=== PATIENT | female | born 1985 | race Native Hawaiian/Other Pacific Islander ===

== ENCOUNTER 2017-04-16 07:57 | Day surgery (SDC) | payer OTHER ==
--- NOTE | 2017-04-16 08:26 | C.PDOC ---
History Of Present Illness 31-year-old female presents to the emergency department complaining of vaginal bleeding for 2 days. LMP was 02/03/17. Patient had an ultrasound yesterday done by Dr. Corral, and was told to come in today due to ongoing vaginal bleeding. No nausea, vomiting, diarrhea, fever, or chills. Time Seen by Provider: 04/16/17 08:03 Chief Complaint (Nursing): Female Genitourinary History Per: Patient History/Exam Limitations: no limitations Onset/Duration Of Symptoms: Days (x2) Current Symptoms Are (Timing): Still Present Abnormal Vaginal Bleeding: Yes : 2 Para: 1 Past Medical History Reviewed: Historical Data, Nursing Documentation, Vital Signs Vital Signs: Last Vital Signs Temp 97.1 F L 04/16/17 07:59 Pulse 94 H 04/16/17 07:59 Resp 18 04/16/17 07:59 BP 113/76 04/16/17 07:59 Pulse Ox 100 04/16/17 08:26 Surgical History: Family History: States: No Known Family Hx - Social History Hx Alcohol Use: No Hx Substance Use: No - Immunization History Hx Tetanus Toxoid Vaccination: No Hx Influenza Vaccination: No Hx Pneumococcal Vaccination: No Review Of Systems Except As Marked, All Systems Reviewed And Found Negative. Constitutional: Negative for: Fever, Chills Gastrointestinal: Negative for: Nausea, Vomiting, Diarrhea Genitourinary: Positive for: Vaginal Bleeding Physical Exam - Physical Exam Appears: Non-toxic, No Acute Distress Skin: Normal Color, Warm, Dry Head: Atraumatic, Normacephalic Eye(s): bilateral: Normal Inspection, PERRL, EOMI Nose: Normal Oral Mucosa: Moist Neck: Normal ROM, Supple Chest: Symmetrical Cardiovascular: Rhythm Regular, No Murmur Respiratory: Normal Breath Sounds, No Accessory Muscle Use Gastrointestinal/Abdominal: Soft, Tenderness (to suprapubic region), No Guarding , No Rebound Back: Normal Inspection, No CVA Tenderness, No Vertebral Tenderness Extremity: Bilateral: Atraumatic, Normal Color And Temperature, Normal ROM Neurological/Psych: Oriented x3, Normal Speech ED Course And Treatment O2 Sat by Pulse Oximetry: 100 (RA) Pulse Ox Interpretation: Normal Medical Decision Making Medical Decision Making: Impression: Incomplete Time: 8:05 Initial Plan: CMP CBC Blood type and screen PTT Prothrombin time Urinalysis 8:24 Patient will be admitted to Dr. Corral for incomplete miscarriage Disposition Discussed With .: Jose Luis Corral Doctor Will See Patient In The: ED Counseled Patient/Family Regarding: Studies Performed, Diagnosis - Disposition Disposition: HOSPITALIZED Disposition Time: 08:25 Condition: FAIR Forms: [facility] (Bangladeshi) - Clinical Impression Clinical Impression: Incomplete miscarriage - Scribe Statement The provider has reviewed the documentation as recorded by the Sheldon Garcia Provider Attestation: All medical record entries made by the Sheldon were at my direction and personally dictated by me. I have reviewed the chart and agree that the record accurately reflects my personal performance of the history, physical exam, medical decision making, and the department course for this patient. I have also personally directed, reviewed, and agree with the discharge instructions and disposition.
[2017-04-16 08:31] LABS: SQUAMOUS EPITHIAL 3 /hpf (0-5); URINE BILIRUBIN NEGATIVE (NEGATIVE); URINE BLOOD 3+ (NEGATIVE); URINE CLARITY Hazy (Clear); URINE COLOR Yellow (YELLOW); URINE GLUCOSE (UA) NORMAL (Normal); URINE PROTEIN 1+ mg/dL (NEGATIVE); URINE UROBILINOGEN NORMAL mg/dL (0.2-1.0)
[2017-04-16 08:32] LABS: URINE LEUKOCYTE ESTERASE 1+ Leu/uL (Negative)
[2017-04-16 08:35] LABS: INR 1.2; PROTHROMBIN TIME 13.5 SECONDS (9.7-12.2)
--- NOTE | 2017-04-16 08:38 | CP.PCM.HP ---
History of Present Illness - History of Present Illness History of Present Illness: 31 yr lmp 01/24/18 came with co vaginal bleeding started 2 days , got heaveir last night wit clots and pain/cramping. obhx 1x pmh denies med pnv all nkda psh den soch den sse mod amunt of blod with clots,cervix dilated. pelvic exam ext gen old blood, cervix dilated with clots, ut antverted,no mass abd soft,mild tenderness Present on Admission - Present on Admission Any Indicators Present on Admission: No History of DVT/PE: No History of Uncontrolled Diabetes: No Urinary Catheter: No Decubitus Ulcer Present: No Review of Systems - Reproductive: Female Reproductive:Female: Heavy Menses Past Patient History - Past Social History Smoking Status: Never Smoked - PSYCHIATRIC Hx Substance Use: No - SURGICAL HISTORY Hx Section: Yes (x1) - ANESTHESIA Hx Anesthesia: Yes Hx Anesthesia Reactions: No Meds Allergies/Adverse Reactions: Allergies Allergy/AdvReac Type Severity Reaction Status Date / Time No Known Allergies Allergy Verified 04/16/17 08:01 Physical Exam - Exam External exam: NORMAL EXTERNAL EXAM (with vaginal bleeeding) Speculum exam: Vaginal Bleeding Bimanual exam: NORMAL BIMANUAL EXAM (cervix dilated) Results - Vital Signs Recent Vital Signs: Last Vital Signs Temp 97.1 F L 04/16/17 07:59 Pulse 94 H 04/16/17 07:59 Resp 18 04/16/17 07:59 BP 113/76 04/16/17 07:59 Pulse Ox 100 04/16/17 08:26 - Labs Labs: Laboratory Results - last 24 hr 04/16/17 08:24 Urine Color Yellow Urine Clarity Hazy Urine pH 5.0 Ur Specific Reed 1.025 Urine Protein 1+ H Urine Glucose (UA) Normal Urine Ketones Negative Urine Blood 3+ H Urine Nitrate Negative Urine Bilirubin Negative Urine Urobilinogen Normal Ur Leukocyte Esterase 1+ H Urine WBC (Auto) 17 H Urine RBC (Auto) 413 H Ur Squamous Epith Cells 3 Assessment & Plan - Assessment and Plan (Free Text) Assessment: 31 yr at 9weeks incomplete Plan: admit to [facility] for suction d&c npo/ivf labs pain man OR aware Anthesia aware informed consent. r/a/b disc - Date & Time Date: 04/16/17 Time: 10:00
[2017-04-16 08:47] LABS: ALB/GLOB RATIO 1.1 (1.0-2.1); ALBUMIN 4.4 g/dL (3.5-5.0); ALT/SGPT 21 U/L (9-52); AST/SGOT 25 U/L (14-36); BLOOD UREA NITROGEN 9 mg/dL (7-17); CALCIUM 9.1 mg/dl (8.6-10.4); GFR AFRICAN-AMERICAN > 60; GFR NON-AFRICAN AMERICAN > 60
[2017-04-16 08:50] LABS: BASO % 0.5 % (0.0-2.0); EOS # 0.1 K/uL (0.0-0.7); EOS % 1.6 % (0.0-4.0); HEMOGLOBIN 8.6 g/dL (11.0-16.0); LYMPH # 1.4 K/uL (1.0-4.3); LYMPH % 17.1 % (20.0-40.0); MEAN CELL VOLUME 56.2 fL (81.0-99.0); MEAN CORPUSCULAR HEMOGLOBIN 16.9 pg (27.0-31.0); MONO # 0.5 K/uL (0.0-0.8); MONO % 6.2 % (0.0-10.0); NEUT % 74.6 % (50.0-75.0); RBC 5.13 Mil/uL (3.80-5.20); RED CELL DISTRIBUTION WIDTH 25.9 % (11.5-14.5)
[2017-04-16] MEDS ORDERED: cefOXitin IV 1 gm in Dextrose 1 GM/50 ML BAG IVPB ONE (08:56)
[2017-04-16] MEDS ORDERED: Oxytocin 20 units in LR 0 ML IV ONE (08:56)
[2017-04-16] MEDS ORDERED: Midazolam 2 MG/2 ML VIAL ONE (08:57)
[2017-04-16] MEDS ORDERED: Propofol 10 mg/ml Inj (20 ML) ONE (08:58)
--- NOTE | 2017-04-16 09:28 | PCM.SURG1 ---
Surgeon's Initial Post Op Note - Surgeon's Notes Surgeon: dr penn Manager Risk Management: none Type of Anesthesia: General LMA Anesthesia Administered By: dr grady Pre-Operative Diagnosis: 31 yr at 9weels incomplete Operative Findings: see the op repart Post-Operative Diagnosis: same Operation Performed: suction d&c Specimen/Specimens Removed: poc. chromose Estimated Blood Loss: EBL {In ML}: 20 Blood Products Given: N/A Drains Used: No Drains Post-Op Condition: Good Date of Surgery/Procedure: 04/16/17 Time of Surgery/Procedure: 10:00
[2017-04-16] MEDS ORDERED: Lactated Ringer's 1,000 ML IV SCH (09:30)
[2017-04-16 10:21] VITALS: O2SAT 100
[2017-04-16 11:25] VITALS: RESP 16
[2017-04-16 11:50] VITALS: BP 99/63; PULSE 79; TEMP 97.7
--- NOTE | 2017-04-17 05:47 | OP ---
PROCEDURE DATE: 04/16/2017 PREOPERATIVE DIAGNOSIS: A 31 years old gravid 2, para 1 at 9 weeks incomplete . POSTOPERATIVE DIAGNOSIS: A 31 years old gravid 2, para 1 at 9 weeks incomplete . SURGEON: Jose Luis Corral MD CLIENT INSIGHTS CONSULTANT: None TYPE OF ANESTHESIA: General anesthesia. ANESTHESIOLOGIST: Dr. Portillo. COMPLICATIONS: None. PROCEDURE PERFORMED: Suction dilatation and curettage. DESCRIPTION OF PROCEDURE: After informed consent was obtained, the patient was brought to the operating room, placed on the table where general anesthesia was given. Once the anesthesia was found to be adequate, the patient was prepped and draped in the normal sterile fashion. Examination of the uterus revealed it to be in 8 to 9 weeks size. No pelvic or adnexal masses. Cervix was dilated. Anterior lip of the cervix was grasped with a tenaculum. A 6-Mauritanian flexible was used for the suction. Suction was then done. The products were taken out, and it was sent to the pathology . After sharp curettage was done and suction was used again, it was a sharp curettage no more products coming out and then the tenaculum was taken out from the anterior lip of the cervix. The patient tolerated the procedure well. Lap, sponge, and instrument counts were correct x2. Jose Luis Corral MD
== END 2017-04-16 12:10 | disposition home or self-care (01) ==
LOC: C.ER 07:57 → C.SDS 08:24 → C.ER 08:35 → C.SDS 08:44
PROVIDERS: ATTEND Obstetrics & Gynecology
DX: O03.4 Incomplete spontaneous abortion without complication (principal); Z3A.09 9 weeks gestation of pregnancy
CPT/HCPCS: 59812; 80053; 81001; 85025; 85610; 85730; 86850; 86900; 88233; 88262; 88305; 99285; J0694; J2250; J2405; J2704; J3010